=== PATIENT | female | born 1960 | race Caucasian/White ===

== ENCOUNTER 2018-04-10 13:20 | Inpatient (IN) | payer MEDICARE, OTHER ==
[~2018-04-10] VITALS: Ht 160 cm; Wt 47.7 kg
[~2018-04-10 13:20] MED LIST: BUPR300T52; LORA1TAB PO
[2018-04-10] MEDS ORDERED: PANTOPRAZOLE SODIUM 40 MG TABLET.DR PO ONE (13:45)
[2018-04-10] MEDS ORDERED: MAG HYDROX/AL HYDROX/SIMETH 30 ML LIQUID UDC PO ONE (13:45)
[2018-04-10] MEDS ORDERED: ASPIRIN 325 MG TABLET PO ONE (13:45)
[2018-04-10] MEDS ORDERED: NITROGLYCERIN 0.4 MG/TAB BOTTLE SL ONE (13:45)
[2018-04-10 13:52] LABS: BASOPHILS % (AUTO) 0.8 % (0.0-2.0); EOSINOPHILS % (AUTO) 0.9 % (0.0-7.0); HEMATOCRIT 39.7 % (31.2-41.9); LYMPHOCYTES # (AUTO) 1.9 K/uL (20.0-40.0); LYMPHOCYTES % (AUTO) 43.2 % (20.5-51.5); MEAN CORPUSCULAR HEMOGLOBIN 27.9 uug (24.7-32.8); MEAN CORPUSCULAR HGB CONC 33 g/dL (32.3-35.6); MONOCYTES # (AUTO) 0.4 K/uL (2.0-10.0); MONOCYTES % (AUTO) 8.6 % (0.0-11.0); NEUTROPHILS % (AUTO) 46.5 % (38.5-71.5); PLATELET COUNT (AUTO) 238 K/uL (179-408); RED BLOOD CELL COUNT(AUTO) 4.67 MIL/uL (3.63-4.92); WHITE BLOOD COUNT (AUTO) 4.3 K/uL (3.8-11.8)
[2018-04-10 14:10] LABS: BILIRUBIN,DIRECT 0.1 mg/dL (0.0-0.2); BILIRUBIN,TOTAL 0.3 mg/dL (0.2-1.0); CREATININE 0.9 mg/dL (0.6-1.3); POTASSIUM 4.7 mmol/L (3.5-5.1); TOTAL PROTEIN, SERUM 7.6 g/dL (6.4-8.2)
--- NOTE | 2018-04-10 14:30 | NUR ---
PATIENT PLACED ON MONITOR. CHEST PAIN DOWN 2/10 AFTER ONE NITRO.VITALS STABLE AT THIS TIME
--- NOTE | 2018-04-10 15:01 | NUR ---
PATIENT UP TO BATHROOM
--- NOTE | 2018-04-10 15:28 | NUR ---
DR. KHAN SPOKE TO DR CHAMBERS WILL BE ADMITING TO TELE FOR OBSERVATION.
--- NOTE | 2018-04-10 15:30 | NUR ---
CALLED [facility] IT COORDINATOR NURSE PATIENT WILL BE GOING TO ROOM 22O ACCEPTING RN WILL BE EBONY MCDERMOTT.
--- NOTE | 2018-04-10 15:42 | NUR ---
REPORT GIVEN TO EBONY MCDERMOTT. BED ASSIGNMENT CHANGED TO ROOM 204
[2018-04-10] MEDS ORDERED: LORAZEPAM 2 MG/1 ML VIAL IV ONE (16:00)
--- NOTE | 2018-04-10 16:22 | NUR ---
ATIVAN NOT GIVEN WILL INFORM FLOOR NURSE TO GIVE. FLOOR SUPPLY IN ER NOT AVAILABLE.
--- NOTE | 2018-04-10 16:44 | NUR ---
Pt admitted from home via ER, 57 year old with admitting diagnosis of chest pain. Pt awake, alert and oriented. Initial assessment initiated and will call MD for admission orders.
[2018-04-10 16:52] VITALS: BP 130/78
[2018-04-10] MEDS ORDERED: MAGNESIUM HYDROXIDE 30 ML LIQUID UDC PO PRN (17:15)
[2018-04-10] MEDS ORDERED: TEMAZEPAM 15 MG CAPSULE PO PRN (17:15)
[2018-04-10] MEDS ORDERED: ONDANSETRON 4 MG/2 ML VIAL IV PRN (17:15)
[2018-04-10] MEDS ORDERED: NITROGLYCERIN 0.4 MG/TAB BOTTLE SL PRN (17:15)
[2018-04-10] MEDS ORDERED: ACETAMINOPHEN 325 MG TABLET PO PRN (17:15)
[2018-04-10] MEDS ORDERED: Z GUARD REMEDY PASTE 57 GM TUBE TOP PRN (17:15)
[2018-04-10] MEDS ORDERED: HYDROCODONE/APAP 5-325MG TABLET PO PRN (17:15)
--- NOTE | 2018-04-10 17:15 | NUR ---
Pt seen by hospitalist with orders, see notes
--- NOTE | 2018-04-10 18:04 | NUR ---
Pt seen by Dr. Matthews, will follow up with echocardiogram in the morning 04/11/18. See cardiology notes
--- NOTE | 2018-04-10 19:25 | NUR ---
RECEIVED PT AWAKE, ALERT, AND ORIENTED X4. DAUGHTER AT BEDSIDE. PT SHOWS NO SIGNS OF DISTRESS. PT IV INTACT AND PATENT. SAFETY AND COMFORT PROVIDED. WILL CONTINUE TO MONITOR.
[2018-04-10 19:58] VITALS: BP 126/74
[2018-04-10] MEDS ORDERED: OSPE60TA2 PO (20:03)
[2018-04-10] MEDS ORDERED: CALC1CAP29 PO (20:03)
[2018-04-10] MEDS ORDERED: OMEP40CA37 PO (20:03)
[2018-04-10] MEDS ORDERED: LUBI8CAP PO (20:03)
[2018-04-10] MEDS ORDERED: MILN50TA PO (20:03)
[2018-04-10] MEDS ORDERED: BUPR300T54 PO (20:26)
[2018-04-10] MEDS ORDERED: LORA0.5T PO (20:27)
[2018-04-11] VITALS: BP 107/62
[2018-04-11] MEDS ORDERED: LORAZEPAM 0.5 MG TABLET PO PRN (02:15)
[2018-04-11] MEDS ORDERED: Medication Not On Formulary EA (Bupropion Hcl (Bupropion Xl) 300 MG) PO SCH (02:15)
[2018-04-11] MEDS: IV NS 1000 ML 1,000 ML IV PRN ×2 (02:54→06:53)
[2018-04-11 04:00] VITALS: BP 108/68
[2018-04-11 06:20] LABS: BASOPHILS % (AUTO) 0.7 % (0.0-2.0); EOSINOPHILS # (AUTO) 0.1 K/uL (0.0-0.7); EOSINOPHILS % (AUTO) 2.3 % (0.0-7.0); HEMATOCRIT 37.3 % (31.2-41.9); HEMOGLOBIN 12.5 g/dL (10.9-14.3); LYMPHOCYTES # (AUTO) 2.4 K/uL (20.0-40.0); LYMPHOCYTES % (AUTO) 49.7 % (20.5-51.5); MEAN CORPUSCULAR HEMOGLOBIN 28.5 uug (24.7-32.8); MEAN CORPUSCULAR HGB CONC 34 g/dL (32.3-35.6); MEAN CORPUSCULAR VOLUME 84.9 fL (75.5-95.3); MONOCYTES # (AUTO) 0.3 K/uL (2.0-10.0); MONOCYTES % (AUTO) 7.1 % (0.0-11.0); NEUTROPHILS % (AUTO) 40.2 % (38.5-71.5); PLATELET COUNT (AUTO) 206 K/uL (179-408); RED BLOOD CELL COUNT(AUTO) 4.39 MIL/uL (3.63-4.92); WHITE BLOOD COUNT (AUTO) 4.9 K/uL (3.8-11.8)
--- NOTE | 2018-04-11 06:26 | NUR ---
PT SLEPT THROUGHOUT THE SHIFT. PT SHOWS NO SIGNS OF DISTRESS. PT IV INTACT AND PATENT. PRESCRIBED MEDICATION GIVEN AND PT TOLERATED IT WELL.SAFETY AND COMFORT PROVIDED. WILL ENDORSE ACCORDINGLY TO DAYSHIFT NURSE FOR CONTINUITY OF CARE.
[2018-04-11 06:57] LABS: MAGNESIUM 2.2 mg/dL (1.8-2.4); PHOSPHOROUS 4.1 mg/dL (2.5-4.9); POTASSIUM 4.3 mmol/L (3.5-5.1)
[2018-04-11] MEDS ORDERED: PANTOPRAZOLE SODIUM 40 MG TABLET.DR PO SCH (07:00)
[2018-04-11 07:58] VITALS: BP 99/56
[2018-04-11] MEDS ORDERED: ASPIRIN EC 81 MG TABLET.DR PO SCH (09:00)
[2018-04-11] MEDS ORDERED: OSPEMIFENE 60 MG PO SCH (09:00)
[2018-04-11] MEDS ORDERED: MILNACIPRAN HCL PO SCH (09:00)
[2018-04-11] MEDS ORDERED: [UNRECOGNIZED DRUG - MIXTURE] PO SCH (09:00)
[2018-04-11] MEDS ORDERED: buPROPion XL 150 MG TAB.SR.24H PO SCH (10:45)
[2018-04-11] MEDS ORDERED: TEMAZEPAM 7.5 MG CAPSULE PO PRN (11:15)
[2018-04-11 11:23] VITALS: BP 108/70
[2018-04-11] MEDS ORDERED: LUBI24CA5 PO (14:35)
[2018-04-11 15:20] VITALS: BP 117/72
--- NOTE | 2018-04-11 17:08 | NUR ---
IV line to LAC dcd due to c/of pain, pt awaiting dcd to be finalized as per attending.
--- NOTE | 2018-04-11 17:33 | NUR ---
Dcd instructions (documentation) provided to patient, who verbalized understanding in following up with her own PCP. vitals signs stable, no c/of pain or any other discomfort. No visible signs of distress. Pt. left room accompanied by daughter who remained at bedside. Pt refuse escort service to the lobby, stating "please I'm feeling well and anxious to go home". left room ambulatory steady gait.
[2018-04-11] MEDS ORDERED: LUBIPROSTONE PO SCH (21:00)
== END 2018-04-11 17:39 | disposition home or self-care (01) | DRG 206 ==
LOC: ER 13:20 → TELE 16:03 → MED 04-11 16:27
PROVIDERS: ADMIT Hospitalist; ATTEND Hospitalist
DX: M94.0 Chondrocostal junction syndrome [Tietze] (principal); K21.9 Gastro-esophageal reflux disease without esophagitis; M85.80 Other specified disorders of bone density and structure, unspecified site; F32.9 Major depressive disorder, single episode, unspecified; K29.70 Gastritis, unspecified, without bleeding; M79.7 Fibromyalgia; Z87.891 Personal history of nicotine dependence; F41.9 Anxiety disorder, unspecified; R06.02 Shortness of breath
CPT/HCPCS: 36415; 70030-TC; 71045; 83735; 84100; 84443; 85025; 85730; 93005; 93307; A4663; J2060; J7030

== ENCOUNTER 2022-10-02 18:18 | Emergency (ER) | payer MEDICARE, OTHER ==
[~2022-10-02] VITALS: Ht 160 cm; Wt 48.5 kg
[~2022-10-02 18:18] MED LIST changes: +BUPR-319 PO; -BUPR300T52; +CALC1CAP29 PO; +LORA0.5T PO; -LORA1TAB PO; +LUBI24CA5 PO; +MILN50TA PO; +OMEP40CA21 PO; +OSPE60TA2 PO
--- NOTE | 2022-10-02 18:32 | NUR ---
PTIS IN ROOM #1B. DR SOLIS EVALUATED THE PT.
[2022-10-02] MEDS ORDERED: DIAZEPAM 2 MG TABLET PO ONE (18:45)
[2022-10-02] MEDS ORDERED: LIDOCAINE 5% PATCH TD ONE ×2 (18:45→18:57)
[2022-10-02] MEDS ORDERED: METHOCARBAMOL 500 MG TABLET PO ONE (18:45)
[2022-10-02] MEDS ORDERED: ACETAMINOPHEN ES 500 MG TABLET PO ONE (18:45)
[2022-10-02] MEDS ORDERED: ACETAMINOPHEN ES 500 MG TABLET ONE (18:57)
[2022-10-02] MEDS ORDERED: DIAZEPAM 2 MG TABLET ONE (18:58)
[2022-10-02] MEDS ORDERED: METHOCARBAMOL 500 MG TABLET ONE (18:58)
[2022-10-02] MEDS ORDERED: ONDANSETRON ODT 4 MG TAB.RAPDIS SL ONE (19:30)
[2022-10-02] MEDS ORDERED: ONDANSETRON ODT 4 MG TAB.RAPDIS ONE (19:31)
[2022-10-02] MEDS ORDERED: KETOROLAC TROMETHAMINE 30 MG INJ IM ONE (20:00)
[2022-10-02] MEDS ORDERED: predniSONE 20 MG TABLET PO ONE (20:00)
[2022-10-02] MEDS ORDERED: KETOROLAC TROMETHAMINE 30 MG INJ ONE (20:08)
[2022-10-02] MEDS ORDERED: predniSONE 20 MG TABLET ONE (20:08)
--- NOTE | 2022-10-02 20:15 | NUR ---
PATIENT REFUSED PREDNISONE 60MG PO. NOTIFIED
[2022-10-02] MEDS ORDERED: METHOCARBAMOL 1000 MG/10 ML VIAL IM ONE (21:30)
--- NOTE | 2022-10-02 21:32 | NUR ---
Robaxin Inj not available in the pyxis. Jonah Whatley RNsupervisor money room informed.
[2022-10-02] MEDS ORDERED: METH-807 PO (21:36)
--- NOTE | 2022-10-02 21:36 | NUR ---
Robaxin Inj not available per Training Designer Jonah MONROE MD notified
--- NOTE | 2022-10-02 21:43 | NUR ---
Patient discharged to home in stable condition. Written and verbal after care instructions given. Patient verbalizes understanding of instructions. Stressed follow up or return to ER for worsening s/s. Patient is a/ox4, NAD noted. patient is accompanied by her
[2022-10-02 21:51] VITALS: BP 128/77
== END 2022-10-02 21:52 | disposition home or self-care (01) ==
LOC: ER 18:21
DX: M62.830 Muscle spasm of back (principal); M54.50 Low back pain, unspecified; M79.7 Fibromyalgia; Z88.6 Allergy status to analgesic agent; Z88.0 Allergy status to penicillin; F32.A Depression, unspecified; Z79.899 Other long term (current) drug therapy
CPT/HCPCS: 99284; 96372; J1885; J2800; A4663; A9150; J7512; Q0162